=== PATIENT | female | born 1985 | race Caucasian/White ===

== ENCOUNTER 2018-05-12 09:24 | Emergency (ER) | payer OTHER ==
[~2018-05-12] VITALS: Ht 157.5 cm; Wt 60.0 kg
[~2018-05-12 09:24] MED LIST: ESTR0.5T PO; FIORIC PO; IBUP600 PO; LEVO13.5 IU; LISD40 PO; VENL75 PO
[2018-05-12] MEDS ORDERED: IOHEXOL 300 MG/ML 100 ML BTL (for Rad CT) IVCONTRAST ONE (09:25)
[2018-05-12 09:28] VITALS: BP 119/75; PULSE 75; RESP 16; TEMP 97.7; O2SAT 100
[2018-05-12 10:00] VITALS: RESP 16; O2SAT 99
[2018-05-12] MEDS ORDERED: SODIUM CHLORIDE 0.9% FLUSH 10 ML FLUSH IV FLUSH PRN (10:00)
[2018-05-12] MEDS ORDERED: KETOROLAC TROMETHAMINE 30 MG/ML (IVP) VIAL IV PUSH ONE (10:00)
[2018-05-12] MEDS ORDERED: ONDANSETRON ODT 4 MG TAB PO ONE (10:00)
[2018-05-12] MEDS ORDERED: SODIUM CHLOR 0.9% 1000 ML INJ 1,000 ML IV ONE (10:00)
[2018-05-12 10:23] LABS: AUTOMATED NEUTROPHIL # 13.4 TH/MM3 (1.8-7.7); BASOPHIL # 0.1 TH/MM3 (0-0.2); BASOPHIL % 0.5 % (0.0-2.0); EOSINOPHIL # 0.1 TH/MM3 (0-0.4); EOSINOPHIL % 0.8 % (0.0-4.0); HEMATOCRIT 46.8 % (35.0-46.0); HEMOGLOBIN 15.6 GM/DL (11.6-15.3); LYMPH % 15.1 % (9.0-44.0); LYMPHOCYTE # 2.6 TH/MM3 (1.0-4.8); MEAN CELL VOLUME 83.9 FL (80.0-100.0); MEAN CORPUSCULAR HEMOGLOBIN 27.9 PG (27.0-34.0); MEAN CORPUSCULAR HGB CONC 33.3 % (32.0-36.0); MEAN PLATELET VOLUME 9.9 FL (7.0-11.0); MONO % 4.4 % (0.0-8.0); MONOCYTE # 0.7 TH/MM3 (0-0.9); NEUT % 79.2 % (16.0-70.0); PLATELET COUNT 223 TH/MM3 (150-450); RED BLOOD COUNT 5.58 MIL/MM3 (4.00-5.30)
[2018-05-12 10:25] LABS: BILIRUBIN, URINE NEG (NEG); BLOOD, URINE NEG (NEG); GLUCOSE,URINE NEG (NEG); KETONE, URINE NEG (NEG); NITRITE,URINE NEG (NEG); SQUAMOUS EPITHELIAL CELL URINE 2 /hpf (0-5); URINE COLOR YELLOW (YELLW/STRAW); URINE LEUKOCYTE ESTERASE NEG (NEG)
--- NOTE | 2018-05-12 10:32 | PD ---
HPI Chief Complaint: Abdominal Pain Time Seen by Provider: 09:34 Travel History International Travel<30 days: No Contact w/Intl Traveler<30days: No Traveled to known affect area: No History of Present Illness HPI This is a 32-year-old female who presents to the emergency department with 3 days of pain in her right abdomen radiating to the right back, constant, severe associated with nausea but no fever or chills. She denies any vomiting, diarrhea, vaginal discharge, dysuria or hematuria. She has had kidney stones in the past but she says this feels different. She has had a cholecystectomy in the past but no other surgeries. She had a menstrual cycle 2 weeks ago, which she says came a little early. PFSH Past Medical History ADHD: Yes (TAKES VYVANCE) ?: Not LMP: MARCH 2018 : 1 Para: 1 Past Surgical History Gynecologic Surgery: Yes (LEEP) Social History Alcohol Use: No Tobacco Use: No Substance Use: No Allergies-Medications (Allergen,Severity, Reaction): Coded Allergies: amoxicillin (Unverified Allergy, Severe, CHILDHOOD., 07/10/17) penicillin G (Unverified Allergy, Severe, CHILDHOOD, 07/10/17) Reported Meds & Prescriptions Reported Meds & Active Scripts Active Estradiol 0.5 Mg Tab 0.5 Mg PO DAILY Motrin 600 Mg Tab (Ibuprofen) 600 Mg Tab 600 Mg PO Q6H PRN Reported Hayde (Levonorgestrel (Iud)) 13.5 Mg Iud 13.5 Mg IU Vyvanse 40 Mg Cap (Lisdexamfetamine Dimesylate) 40 Mg Cap 40 Mg PO DAILY Effexor 75 Mg Tab (Venlafaxine HCl) 75 Mg Tab 75 Mg PO ONCE Fioricet Tab (Acetaminophen/Butalbital/Caffeine) 1 Tab 1 Tab PO Q4H PRN Review of Systems Except as stated in HPI: all other systems reviewed are Neg Physical Exam Narrative GENERAL:Well appearing, no acute distress SKIN: Focused skin assessment warm and dry. HEAD: Atraumatic. Normocephalic. EYES: Pupils equal and round. No injection or drainage. ENT: Moist mucous membranes NECK: Trachea midline. CARDIOVASCULAR: Regular rate and rhythm. No murmur appreciated. RESPIRATORY: Clear to auscultation. Breath sounds equal bilaterally. GASTROINTESTINAL: Abdomen soft, tender to palpation in the right lower quadrant and right upper quadrant : Right CVA tenderness [employer]: scant discharge with no cmt or adnexal tenderness MUSCULOSKELETAL: No obvious deformities. NEUROLOGICAL: Awake and alert. No obvious cranial nerve deficits. Moving all extremities. PSYCHIATRIC: Appropriate mood and affect; insight and judgment normal. Data Data Last Documented VS Vital Signs Date Time Temp Pulse Resp B/P (MAP) Pulse Ox O2 Delivery O2 Flow Rate FiO2 05/12/18 11:00 16 05/12/18 10:00 99 Room Air 05/12/18 09:28 97.7 75 119/75 (90) Orders Orders Complete Blood Count With Diff (05/12/18 09:47) Comprehensive Metabolic Panel (05/12/18 09:47) Lipase (05/12/18 09:47) Urinalysis - C+S If Indicated (05/12/18 09:47) Ct Abd/Pel W Iv Contrast(Rout) (05/12/18 09:47) Iv Access Insert/Monitor (05/12/18 09:47) Ecg Monitoring (05/12/18 09:47) Oximetry (05/12/18 09:47) Sodium Chloride 0.9% Flush (Ns Flush) (05/12/18 10:00) Ed Urine Pregnancytest Poc (05/12/18 09:47) Ketorolac Inj (Toradol Inj) (05/12/18 10:00) Ondansetron Odt (Zofran Odt) (05/12/18 10:00) Sodium Chlor 0.9% 1000 Ml Inj (Ns 1000 M (05/12/18 10:00) Iohexol 300 Inj (Rad Ct) (Omnipaque 300 (05/12/18 09:25) Wet Prep Profile (05/12/18 12:25) Gc And Chlamydia Pcr (05/12/18 12:25) Labs Laboratory Tests Test 05/12/18 09:55 05/12/18 10:05 White Blood Count 17.0 TH/MM3 Red Blood Count 5.58 MIL/MM3 Hemoglobin 15.6 GM/DL Hematocrit 46.8 % Mean Corpuscular Volume 83.9 FL Mean Corpuscular Hemoglobin 27.9 PG Mean Corpuscular Hemoglobin Concent 33.3 % Red Cell Distribution Width 14.0 % Platelet Count 223 TH/MM3 Mean Platelet Volume 9.9 FL Neutrophils (%) (Auto) 79.2 % Lymphocytes (%) (Auto) 15.1 % Monocytes (%) (Auto) 4.4 % Eosinophils (%) (Auto) 0.8 % Basophils (%) (Auto) 0.5 % Neutrophils # (Auto) 13.4 TH/MM3 Lymphocytes # (Auto) 2.6 TH/MM3 Monocytes # (Auto) 0.7 TH/MM3 Eosinophils # (Auto) 0.1 TH/MM3 Basophils # (Auto) 0.1 TH/MM3 CBC Comment DIFF FINAL Differential Comment Blood Urea Nitrogen 12 MG/DL Creatinine 0.87 MG/DL Random Glucose 83 MG/DL Total Protein 8.4 GM/DL Albumin 4.4 GM/DL Calcium Level 9.9 MG/DL Alkaline Phosphatase 110 U/L Aspartate Amino Transf (AST/SGOT) 14 U/L Alanine Aminotransferase (ALT/SGPT) 20 U/L Total Bilirubin 0.2 MG/DL Sodium Level 139 MEQ/L Potassium Level 3.9 MEQ/L Chloride Level 106 MEQ/L Carbon Dioxide Level 23.2 MEQ/L Anion Gap 10 MEQ/L Estimat Glomerular Filtration Rate 75 ML/MIN Lipase 132 U/L Urine Color YELLOW Urine Turbidity CLEAR Urine pH 8.0 Urine Specific [place] 1.011 Urine Protein NEG mg/dL Urine Glucose (UA) NEG mg/dL Urine Ketones NEG mg/dL Urine Occult Blood NEG Urine Nitrite NEG Urine Bilirubin NEG Urine Urobilinogen LESS THAN 2 mg/dL Urine Leukocyte Esterase NEG Urine WBC LESS THAN 1 /hpf Urine Squamous Epithelial Cells 2 /hpf Microscopic Urinalysis Comment CULT NOT INDICATED MDM Medical Decision Making Medical Screen Exam Complete: Yes Emergency Medical Condition: Yes Interpretation(s) Afebrile, no tachycardia, normotensive Leukocytosis of 17 Hemoglobin is 15 consistent with hemoconcentration Electrolytes are reassuring Lipase is normal action [id number] test is negative CT abdomen pelvis is negative Differential Diagnosis Acute appendicitis, nephrolithiasis, pyelonephritis, pelvic inflammatory disease , gastroenteritis Narrative Course This is a 32-year-old female who presents to the emergency department with abdominal pain has been going on for several days associated with nausea. She was placed on a monitor and an IV was established. Labs demonstrate a leukocytosis with some hemoconcentration. She was given IV fluids, Toradol and Zofran. Her symptoms improved some. Pelvic exam is benign. CT abdomen pelvis is negative for acute surgical etiology of her symptoms but the appendix is not visualized. I had a long conversation with the patient and she does have a tender abdomen and I am concerned about her leukocytosis. I do not have a great explanation for her symptoms although this could be an atypical viral syndrome. I offered the patient observation for serial abdominal exams for possible early appendicitis but she declined. She seems very reliable and she will return to the emergency department if her pain gets worse, she develops fever or if she starts to have vomiting as there is a very small chance that this still could be appendicitis. Diagnosis Primary Impression: Abdominal pain Qualified Codes: R10.9 - Unspecified abdominal pain Patient Instructions: General Instructions Additional Instructions: If you develop severe or worsening abdominal pain, fever>100.4, persistent vomiting or inability to eat or drink return to the emergency department immediately. Follow up with your primary care physician in 1-2 days for a check-up. Med/Other Pt SpecificInfo: Prescription(s) given Scripts Dicyclomine (Bentyl) 10 Mg Cap 10 MG PO TID Y for Bowel Management, #20 CAP 0 Refills Prov: Dorene Harrell MD 05/12/18 Ondansetron Odt (Zofran Odt) 4 Mg Tab 4 MG SL Q6HR Y for Nausea/Vomiting, #15 TAB 0 Refills Prov: Dorene Harrell MD 05/12/18 Disposition: 01 DISCHARGE HOME Condition: Stable Dorene Harrell MD May 12, 2018 10:32
[2018-05-12 10:43] LABS: ALBUMIN 4.4 GM/DL (3.4-5.0); AST (GOT) 14 U/L (15-37); BICARBONATE 23.2 MEQ/L (21.0-32.0); BLOOD UREA NITROGEN 12 MG/DL (7-18); CALCIUM 9.9 MG/DL (8.5-10.1); CHLORIDE 106 MEQ/L (98-107); CREATININE 0.87 MG/DL (0.50-1.00); GLOMERULAR FILTRATION RATE 75 ML/MIN (>89); GLUCOSE,RANDOM 83 MG/DL (74-106); SODIUM (NA) 139 MEQ/L (136-145)
[2018-05-12 10:44] LABS: ALT (GPT) 20 U/L (10-53)
[2018-05-12 10:46] LABS: ALKALINE PHOSPHATASE 110 U/L (45-117); TOTAL BILIRUBIN ADULT 0.2 MG/DL (0.2-1.0); TOTAL PROTEIN 8.4 GM/DL (6.4-8.2)
--- NOTE | 2018-05-12 10:58 | RADRPT ---
EXAM DATE: 05/12/2018 10:52 AM EDT AGE/SEX: 32 years / Female INDICATIONS: Right side upper abdomen pain for four days. CLINICAL DATA: This is the patient's initial encounter. Patient reports that signs and symptoms have been present for 4 - 6 days and indicates a pain score of 8/10. MEDICAL/SURGICAL HISTORY: Renal calculi. Carcinoma, cervical. Osteopenia. None. ORAL CONTRAST: No oral contrast ingested. RADIATION DOSE: 4.73 CTDI (mGy) COMPARISON: No prior exams available for comparison. TECHNIQUE: Multiple contiguous axial images were obtained through the abdomen and pelvis following b olus infusion of 70 ml Omnipaque 350 (iohexol) nonionic water-soluble contrast as a single exam dos e. No oral contrast ingested. Using automated exposure control and adjustment of the mA and/or kV ac cording to patient size, the radiation dose was kept as low as reasonably achievable to obtain optima l diagnostic quality images. FINDINGS: Lower chest: No acute abnormality is identified. Hepatobiliary: No focal liver lesion is identified. Hepatic vasculature demonstrates no abnormality. Gallbladder is absent with clips in the gallbladder fossa. No significant bile duct dilatation is pre sent. The mid common bile duct measures 6 mm. Kidneys: No hydronephrosis, stone, or mass. Adrenal Glands: Within normal limits. Spleen: Within normal limits. Pancreas: Within normal limits. Vascular: The aorta is nonaneurysmal. Bowel/Mesentery: The stomach and small bowel demonstrate no abnormality. No acute colon abnormality i s seen. There is no free intraperitoneal air or fluid. Appendix is not visualized. Abdominal Wall: No hernia is visualized. Retroperitoneum: No lymphadenopathy. Bladder: No wall thickening or mass. Reproductive: Within normal limits. IUD is present within the uterus. Inguinal: No lymphadenopathy or hernia. Musculoskeletal: No acute osseous abnormality is identified. CONCLUSION: No abnormality is identified to explain the patient's pain. No acute finding is identified. Electronically signed by: Christos Robles MD 05/12/2018 10:57 AM EDT
[2018-05-12 11:00] VITALS: RESP 16
[2018-05-12] MEDS ORDERED: DICY10 PO (12:41)
[2018-05-12] MEDS ORDERED: ZOFR4TAB3 SL (12:41)
== END 2018-05-12 12:50 | disposition home or self-care (01) ==
LOC: NEPD 09:24
DX: R10.9 Unspecified abdominal pain (principal); R11.0 Nausea; F90.9 Attention-deficit hyperactivity disorder, unspecified type; Z87.442 Personal history of urinary calculi; Z79.899 Other long term (current) drug therapy
CPT/HCPCS: 74177; 80053; 81001; 83690; 84703; 85025; 87210; 87491; 87591; 96361; 96374; 99284; J1885; J7030; Q9967